=== PATIENT | male | born 1950 | race Caucasian/White ===

== ENCOUNTER 2017-03-20 17:03 | Emergency (ER) | payer MEDICARE, MEDICAID ==
[~2017-03-20] VITALS: Ht 177.8 cm; Wt 89.5 kg
[2017-03-20] MEDS ORDERED: METH10 PO (17:57)
[2017-03-20 18:41] VITALS: BP 148/86
== END 2017-03-20 19:27 | disposition home or self-care (01) ==
LOC: EMS 17:07
DX: Z48.01 Encounter for change or removal of surgical wound dressing (principal); S81.801D Unspecified open wound, right lower leg, subsequent encounter; F17.210 Nicotine dependence, cigarettes, uncomplicated; F11.90 Opioid use, unspecified, uncomplicated; X58.XXXD Exposure to other specified factors, subsequent encounter
CPT/HCPCS: 99282